=== PATIENT | male | born 1955 | race Caucasian/White ===

== ENCOUNTER 2017-02-24 12:09 | Emergency (ER) | payer BC ==
[~2017-02-24] VITALS: Ht 182.9 cm; Wt 91.0 kg
[2017-02-24 12:49] LABS: EOSINOPHIL (%) 1.9 % (0-5); EOSINOPHIL COUNT 0.1 K/uL (0-0.3); HEMATOCRIT 42.7 % (38.0-50.0); IMMATURE GRANULOCYTE (%) 0.4 % (0.0-0.7); INSTRUMENT ABS NEUTROPHIL CT 2.9 K/uL; LYMPHOCYTE COUNT 1.4 K/uL (1.0-2.8); MCH 33.3 PG (29.0-34.0); MCHC 35.1 G/DL (30.0-36.0); MCV 94.7 FL (86-99); MEAN PLAT.VOLUME 11.2 uM^3 (9.0-12.4); MONOCYTE (%) 7.3 % (3-12); MONOCYTE COUNT 0.4 K/uL (0-0.8); NEUTROPHIL (%) 60.7 % (45-76); NEUTROPHIL COUNT 2.9 K/uL (1.8-6.4); PLATELET COUNT 163 K/uL (156-360); RBC DIS.WIDTH-CV 11.9 % (11.8-14.6); RBC DIS.WIDTH-SD 40.8 % (39-53); RED BLOOD COUNT 4.51 M/uL (4.00-5.50); WHITE BLOOD COUNT 4.8 K/uL (4.1-10.2)
[2017-02-24 12:59] LABS: CHLORIDE 110 mEq/L (99-109); POTASSIUM 3.8 mEq/L (3.7-5.4); SODIUM 141 mEq/L (136-147)
[2017-02-24 13:01] LABS: GLUCOSE 71 mg/dL (70-99)
[2017-02-24 13:02] LABS: ANION GAP 9 MEQ/L (2-14)
[2017-02-24 13:05] LABS: GFR ESTIMATE (CALCULATED) > 59 mL/min/; UREA NITROGEN (BUN) 22 mg/dL (9-23)
[2017-02-24] MEDS ORDERED: KEFLEX500 MG PO (13:43)
[2017-02-24 13:56] VITALS: BP 137/93
== END 2017-02-24 14:00 | disposition home or self-care (01) ==
LOC: EME 12:09
PROVIDERS: Emergency Medicine
DX: S50.862A Insect bite (nonvenomous) of left forearm, initial encounter (principal); L03.114 Cellulitis of left upper limb; W57.XXXA Bitten or stung by nonvenomous insect and other nonvenomous arthropods, initial encounter; Z88.2 Allergy status to sulfonamides
CPT/HCPCS: 80048; 85025; 93005; 99281; 99284